=== PATIENT | female | born 1940 | race Two or more races ===

== ENCOUNTER 2017-10-20 17:32 | Emergency (ER) | payer OTHER ==
[2017-10-20 18:26] LABS: UA SPECIFIC GRAVITY 1.015 (1.005-1.035); microscopic required? YES; urine erythrocyte 3+ (NEGATIVE)
[2017-10-20 18:31] LABS: BASOPHIL % 0.3 % (0-2); PLATELET COUNT 295 x10^3mcL (130-400); RED CELL DISTRIBUTION WIDTH 18.8 % (11.5-14.5)
[2017-10-20 18:42] LABS: ALKALINE PHOSPHATASE 180 U/L (46-116); ALT/SGPT 108 U/L (14-59); AST/SGOT 104 U/L (15-37); BILIRUBIN TOTAL 0.5 mg/dL (0.20-1.00); CALCIUM 8.7 mg/dL (8.5-10.1); CARBON DIOXIDE 27.3 mmol/L (21-32); CHLORIDE SERUM 113 mmol/L (98-107); GLUCOSE SERUM 136 mg/dL (74-106); SODIUM SERUM 149 mmol/L (136-145)
[2017-10-20 18:46] LABS: CK-MB 0.8 ng/mL (0-3.6)
[2017-10-20 18:55] LABS: ALBUMIN 1.7 g/dL (3.4-5.0); CREATININE SERUM 5.1 mg/dL (0.6-1.0); POTASSIUM SERUM 6.4 mmol/L (3.5-5.1); TOTAL PROTEIN, SERUM 9.4 g/dL (6.4-8.2)
[2017-10-20 19:54] VITALS: BP 84/56
[2017-10-20 20:27] LABS: MAGNESIUM 2.2 mg/dL (1.8-2.4); PHOSPHOROUS 7.5 mg/dL (2.5-4.9)
[2017-10-20 20:33] LABS: CHOLESTEROL/HDL RATIO 6.8; T3 TOTAL 0.81 ng/mL
[2017-10-20 20:44] LABS: FREE T4 1.71 ng/dL (0.76-1.46); FREE THYROXINE INDEX 3.9 ug/dL (1.4-4.5)
== END 2017-10-20 20:13 | disposition expired ==
LOC: ED 17:32 → IC 19:20
PROVIDERS: Emergency Medicine Emergency Medical Services; Family Medicine
DX: A41.89 Other specified sepsis (principal); N17.9 Acute kidney failure, unspecified; I46.9 Cardiac arrest, cause unspecified; J18.9 Pneumonia, unspecified organism; E87.5 Hyperkalemia
CPT/HCPCS: 36600; 83880; 84439; A4628; J0171; J1265; J1815; J3490; J7030; J7040; J7620; Q0092